=== PATIENT | male | born 1930 | race Hispanic/Latino ===

== ENCOUNTER 2016-08-04 23:57 | Emergency (ER) | payer MEDICARE, BC ==
[2016-08-05 00:54] LABS: HEMATOCRIT 33.7 % (39.0-50.0); HEMOGLOBIN 11.2 g/dl (14.0-18.0); IMMATURE GRANULOCYTES 0.2 % (0.0-1.0); MEAN CELL VOLUME 78.4 fL CALC (80.0-100.0); MEAN CORPUSCULAR HGB CONC 33.2 g/L CALC (32.0-36.0); NEUT# 3.81 thou/uL (1.82-7.42); RED BLOOD COUNT 4.3 mill/uL (4.70-6.10); RED CELL DISTRI WIDTH 15.2 % (11.5-15.5)
[2016-08-05 01:01] LABS: URINE BILIRUBIN - DIPSTICK NEGATIVE (NEGATIVE); URINE BLOOD DIPSTICK LARGE (NEGATIVE); URINE CLARITY CLEAR; URINE COLOR YELLOW; URINE GLUCOSE - DIPSTICK NEGATIVE (NEGATIVE); URINE KETONE NEGATIVE (NEGATIVE); URINE LEUK ESTERASE NEGATIVE (NEGATIVE); URINE NITRITE - DIPSTICK NEGATIVE (Negative); URINE PROTEIN - DIPSTICK 30 mg/dL (NEG-TRACE); URINE UROBILINOGEN - DIPSTICK 0.2 E.U./dL (0.2)
[2016-08-05 01:13] LABS: ALKALINE PHOSPHATASE 54 u/l (38-126); AMYLASE 31 u/l (30-110); ANION GAP 16 (6-22 (CALC)); BILIRUBIN, TOTAL 0.4 mg/dL (0.0-1.4); BUN 12 mg/dL (8-23); BUN/CREATININE RATIO 15 (12-20 (CALC)); CALCIUM 8.8 mg/dL (8.4-10.2); CARBON DIOXIDE 21 mmol/l (22-30); CHLORIDE 103 mmol/l (95-108); CREATININE 0.8 mg/dL (0.7-1.3); GFR > 60 ML/MIN (>=60 (CALC)); GFR FOR AFR.AMER. > 60 ML/MIN (>=60 (CALC)); GLUCOSE 217 mg/dL (82-115); LIPASE 46 u/l (23-300); POTASSIUM 3.6 mmol/l (3.5-5.1); SGOT/AST 23 u/l (19-48); SGPT/ALT 39 u/l (11-66); SODIUM 137 mmol/l (137-146); TOTAL PROTEIN 6.7 g/dL (6.3-8.2)
[2016-08-05 01:13] LABS: URINE BACTERIA MODERATE hpf; URINE HYALINE CAST FEW lpf (NONE-RARE); URINE MUCUS FEW hpf (NONE-FEW); URINE SQUAMOUS EPITHELIAL CELL FEW EPI/hpf (0-FEW)
[2016-08-05] MEDS ORDERED: Levaquin PO (03:11)
[2016-08-05 03:20] VITALS: BP 122/59
[2016-08-12] MEDS ORDERED: ASPIRIN81 MG PO (11:25)
[2016-08-12] MEDS ORDERED: FUROSEMIDE40 MG PO (11:26)
[2016-08-12] MEDS ORDERED: CELEXA20 MG PO (11:26)
[2016-08-12] MEDS ORDERED: CRESTOR10 MG PO (11:26)
[2016-08-12] MEDS ORDERED: NEURONTIN300 MG PO (11:39)
[2016-08-12] MEDS ORDERED: K-DUR/KLOR-CON20 MEQ PO (11:40)
[2016-08-12] MEDS ORDERED: GLIPIZIDE ER2.5 MG PO (11:40)
[2016-08-12] MEDS ORDERED: LOSARTAN POT25 MG PO (11:40)
[2016-08-12] MEDS ORDERED: OMEPRAZOLE20 M2 PO (11:41)
[2016-08-12] MEDS ORDERED: XARELTO10 MG PO (11:41)
[2016-08-12] MEDS ORDERED: METFORMIN500 M2 PO (11:41)
[2016-08-12] MEDS ORDERED: TRIAMCINOLON0.11 TOP (11:42)
[2016-08-12] MEDS ORDERED: VOLTAREN1%GEL TOP (11:42)
== END 2016-08-05 03:27 | disposition home or self-care (01) ==
LOC: ED 23:57
PROVIDERS: Emergency Medicine
DX: R19.7 Diarrhea, unspecified (principal); R11.2 Nausea with vomiting, unspecified; E11.9 Type 2 diabetes mellitus without complications; I51.9 Heart disease, unspecified; Z95.0 Presence of cardiac pacemaker

== ENCOUNTER 2017-02-11 09:47 | Emergency (ER) | payer MEDICARE, BC ==
[~2017-02-11] VITALS: Ht 165.1 cm; Wt 65.2 kg
[~2017-02-11 09:47] MED LIST: ASPIRIN81 MG PO; CELEXA20 MG PO; CRESTOR10 MG PO; FUROSEMIDE40 MG PO; GLIPIZIDE ER2.5 MG PO; K-DUR/KLOR-CON20 MEQ PO; LOSARTAN POT25 MG PO; Levaquin PO; METFORMIN500 M2 PO; NEURONTIN300 MG PO; OMEPRAZOLE20 M2 PO; TRIAMCINOLON0.11 TOP; VOLTAREN1%GEL TOP; XARELTO10 MG PO
[2017-02-11 12:05] LABS: HEMATOCRIT 32.1 % (39.0-50.0); HEMOGLOBIN 10.5 g/dl (14.0-18.0); IMMATURE GRANULOCYTES 0.4 % (0.0-1.0); MEAN CELL VOLUME 77.7 fL CALC (80.0-100.0); MEAN CORPUSCULAR HGB 25.4 pG CALC (26.0-32.0); MEAN CORPUSCULAR HGB CONC 32.7 g/L CALC (32.0-36.0); NEUT# 8.53 thou/uL (1.82-7.42); RED BLOOD COUNT 4.13 mill/uL (4.70-6.10); RED CELL DISTRI WIDTH 15.5 % (11.5-15.5)
[2017-02-11 12:18] LABS: INTERNATIONAL NORMALIZED RATIO 1.9 RATIO (0.7-1.3); PROTHROMBIN TIME 21.2 SECONDS (9.0-12.5)
[2017-02-11 12:22] LABS: ALBUMIN 4.1 g/dL (3.2-5.0); ALKALINE PHOSPHATASE 264 u/l (38-126); ANION GAP 16 (6-22 (CALC)); BILIRUBIN, TOTAL 0.8 mg/dL (0.0-1.4); BUN 16 mg/dL (8-23); BUN/CREATININE RATIO 25 (12-20 (CALC)); CARBON DIOXIDE 27 mmol/l (22-30); CHLORIDE 93 mmol/l (95-108); CREATININE 0.6 mg/dL (0.7-1.3); GFR > 60 ML/MIN (>=60 (CALC)); GFR FOR AFR.AMER. > 60 ML/MIN (>=60 (CALC)); GLUCOSE 401 mg/dL (82-115); SGOT/AST 32 u/l (19-48); SGPT/ALT 20 u/l (11-66); SODIUM 132 mmol/l (137-146); TOTAL PROTEIN 7.4 g/dL (6.3-8.2)
[2017-02-11] MEDS ORDERED: COUMADIN4 MG PO (12:25)
[2017-02-11] MEDS ORDERED: MOTRIN400 MG PO (12:28)
[2017-02-11] MEDS ORDERED: SPIRONOLACT25 MG PO (12:29)
[2017-02-11] MEDS ORDERED: ULTRAM50 M1 PO (12:30)
[2017-02-11 12:34] LABS: MYOGLOBIN 26 ng/mL (0 - 121)
[2017-02-11 13:39] LABS: URINE BILIRUBIN - DIPSTICK NEGATIVE (NEGATIVE); URINE BLOOD DIPSTICK TRACE-LYSED (NEGATIVE); URINE COLOR YELLOW; URINE GLUCOSE - DIPSTICK >=1000 mg/dL (NEGATIVE); URINE KETONE NEGATIVE (NEGATIVE); URINE LEUK ESTERASE NEGATIVE (NEGATIVE); URINE NITRITE - DIPSTICK NEGATIVE (Negative); URINE PH 6.5 (4.5-8.0); URINE PROTEIN - DIPSTICK NEGATIVE (NEG-TRACE); URINE UROBILINOGEN - DIPSTICK 0.2 E.U./dL (0.2)
[2017-02-11 13:44] LABS: URINE CLARITY CLEAR
[2017-02-11] MEDS ORDERED: ZITHROMAX250 MG PO (14:50)
[2017-02-11 15:22] VITALS: BP 99/60
== END 2017-02-11 15:22 | disposition home or self-care (01) ==
LOC: ED 09:47
PROVIDERS: Emergency Medicine
DX: R55 Syncope and collapse (principal); S70.01XA Contusion of right hip, initial encounter; K76.9 Liver disease, unspecified; E11.9 Type 2 diabetes mellitus without complications; W19.XXXA Unspecified fall, initial encounter; I10 Essential (primary) hypertension; R10.32 Left lower quadrant pain; Z86.718 Personal history of other venous thrombosis and embolism; Z95.0 Presence of cardiac pacemaker; R94.31 Abnormal electrocardiogram [ECG] [EKG]